=== PATIENT | male | born 1965 | race African-American/Black ===

== ENCOUNTER 2020-12-05 04:01 | Emergency (ER) | payer SELFPAY ==
[~2020-12-05] VITALS: Ht 175.3 cm; Wt 93.0 kg
[2020-12-05 04:06] VITALS: BP 143/99
[2020-12-05] MEDS ORDERED: TERBUTALINE SULFATE 1MG/ML VIAL SUBCUT ONE (04:45)
== END 2020-12-05 05:30 | disposition home or self-care (01) ==
LOC: ER 05:20
DX: N48.33 Priapism, drug-induced (principal); I25.10 Atherosclerotic heart disease of native coronary artery without angina pectoris; T50.995A Adverse effect of other drugs, medicaments and biological substances, initial encounter; Y92.018 Other place in single-family (private) house as the place of occurrence of the external cause
CPT/HCPCS: 99281